=== PATIENT | female | born 1985 | race Caucasian/White ===

== ENCOUNTER 2017-08-19 08:37 | Emergency (ER) | payer MEDICAID ==
[~2017-08-19] VITALS: Ht 157.5 cm; Wt 80.5 kg
[~2017-08-19 08:37] MED LIST: FOLI-49; PREN1TAB49
[2017-08-19 08:39] VITALS: Ht 157.5 cm; Wt 80.5 kg
[2017-08-19] MEDS ORDERED: BENZ200C43 PO (09:27)
[2017-08-19] MEDS ORDERED: FLUT9.9S NASAL (09:27)
[2017-08-19] MEDS ORDERED: AZIT250T94 PO (09:27)
[2017-08-19] MEDS ORDERED: IBUP-1542 PO (09:27)
--- NOTE | 2017-08-19 10:03 | ERD ---
ER Documentation Chief Complaint Date/Time DATE: 08/19/17 TIME: 10:01 Chief Complaint cold symptoms x 1.5 months HPI This patient is a healthy 31-year-old female presenting to the emergency department with complaints of nasal congestion, frontal sinus pain, total body aches, nonproductive cough all ongoing intermittently for the past 1.5 months. Symptoms are now worsening. Symptoms not been improving. The patient has been using [id number] medication with no relief of symptoms. She denies fevers , chills, nausea, vomiting, diarrhea, or other symptoms currently. ROS All systems reviewed and are negative except as per history of present illness. Medications Home Meds Active Scripts Benzonatate* (Benzonatate*) 200 Mg Capsule, 200 MG PO TID Y for COUGH, #20 CAP Prov:RENAE CAT PA-C 08/19/17 Ibuprofen* (Motrin*) 600 Mg Tab, 600 MG PO Q6, #30 TAB Prov:RENAE CAT PA-C 08/19/17 Fluticasone Propionate (Flonase Allergy Relief) 9.9 Ml [place].susp, 1 SPRAY NASAL BID, #1 BOTTLE TO EACH NOSTRIL Prov:RENAE CAT PA-C 08/19/17 Azithromycin* (Zithromax*) 250 Mg Tablet, 250 MG PO .ZPACK DIRECTED, #6 TAB TAKE 500 MG (2 TABS) THE FIRST DAY THEN 250 MG (1 TAB) DAYS 2-5 Prov:RENAE CAT PA-C 08/19/17 Reported Medications Folic Acid* (Folic Acid*) 1 Mg Tablet 03/31/11 Vits W-Ca,Fe,Fa(<1MG) () 1 Tab Tablet 03/31/11 Allergies Allergies: Coded Allergies: Penicillins (Unverified Allergy, Mild, RASHES, 03/22/11) PMhx/Soc History of Surgery: No Anesthesia Reaction: No Hx Neurological Disorder: No Hx Respiratory Disorders: No Hx Cardiac Disorders: No Hx Psychiatric Problems: No Hx Miscellaneous Medical Probl: No Hx Alcohol Use: No Hx Substance Use: No Hx Tobacco Use: No Smoking Status: Never smoker Physical Exam Vitals Vital Signs Date Time Temp Pulse Resp B/P Pulse Ox O2 Delivery O2 Flow Rate FiO2 08/19/17 08:39 97.8 82 18 159/75 99 Physical Exam Const: Nontoxic, well-appearing female in no acute distress. Head: Atraumatic Eyes: Normal Conjunctiva ENT: Normal External Ears, Nose and Mouth. Tenderness to palpation of the frontal and maxillary sinuses bilaterally. Neck: Full range of motion..~ No meningismus. Resp: Mild inspiratory rhonchi to bilateral upper lung cesar. No wheezing, no crackles, no signs of respiratory distress. Cardio: Regular rate and rhythm, no murmurs Skin: No petechiae or rashes Back: No midline or flank tenderness Ext: No cyanosis, or edema Neur: Awake and alert Psych: Normal Mood and Affect Procedures/MDM 31-year-old female presents to the emergency department with complaints of nasal congestion, sinus pain, cough. Physical examination did show some tenderness to palpation of the frontal maxillary sinuses consistent with sinusitis. There is also rhonchi noted to bilateral upper lung cesar on lung examination consistent with a bronchitis. The patient was stable for outpatient management with a prescription for azithromycin, Flonase, ibuprofen, and benzonatate. Her vital signs were stable within the department and she did not require treatment here. She agreed with the discharge plan a diagnosis. Strict ear return precautions were discussed. Close follow-up with the primary care physician was advised. Low suspicion for life-threatening pathology at time of discharge. Departure Diagnosis: Primary Impression: Bronchitis Additional Impressions: Cough Sinusitis Sinusitis location: frontal Chronicity: acute Recurrence: non-recurrent Qualified Code: J01.10 - Acute non-recurrent frontal sinusitis Condition: Fair Patient Instructions: Bronchitis, Antiobiotic Treatment (Adult), Sinusitis, Abx Tx Referrals: [facility] () Usted se lawson hecho un examen mdico de control que le indica que no est en michaelle condicin que requiera tratamiento urgente en el Departamento de Emergencia. Un estudio ms profundo y el tratamiento de martinez condicin pueden esperar sin ningn riesgo hasta que usted sea atendida/o en el consultorio de martinez mdico o michaelle cl kavita. Es responsabilidad suya arreglar michaelle bing para el seguimiento del carlos eduardo. MANEJO DE CONDICIONES NO URGENTES EN EL FUTURO 1) Si usted tiene un mdico de atencin primaria: Usted debera llamar a martinez mdico de atencin primaria antes de venir al departamento de emergencia. Despus de las horas de consultorio, martinez doctor o martinez asociado/a est disponible por telfono. El mdico o enfermero de nilesh en el servicio telefnico puede asesorarle por sixto medio para atender el problema, o carlos eduardo contrario se puede programar michaelle bing. 2) Si usted no tiene un mdico de atencin primaria: Llame al mdico o clnica de referencia que aparece abajo anatoliy las horas de consultorio para hacer michaelle bing para que le vean. CLINICAS: [facility] [phone] [facility] [phone] [address] [facility] [phone] [facility] [phone] [facility]. [facility] [phone] [address] [facility] [phone] [address] Additional Instructions: No mas mejor en 2-3 rowley, regresar. Mas peor en 24 horas, regresear rapidamente. Ir a doctor primario in 5-7 rowley. Usar instrucciones cuando day medicamento. RENAE CAT PA-C Aug 19, 2017 10:03
== END 2017-08-19 10:43 | disposition home or self-care (01) ==
LOC: FTE 08:37
DX: J20.9 Acute bronchitis, unspecified (principal); J01.10 Acute frontal sinusitis, unspecified
CPT/HCPCS: 99284

== ENCOUNTER 2018-11-13 16:44 | Inpatient (IN) | END 2018-11-15 16:05 | disposition home or self-care (01) | DRG 282 ==

== ENCOUNTER 2019-05-31 12:32 | Emergency (ER) | payer SELFPAY ==
[~2019-05-31] VITALS: Ht 157.5 cm; Wt 77.7 kg
[~2019-05-31 12:32] MED LIST changes: +DILT120C77 PO; -FOLI-49; -PREN1TAB49
[2019-05-31 12:37] VITALS: Ht 157.5 cm; Wt 77.7 kg
[2019-05-31] MEDS ORDERED: AZIT250T PO (14:05)
[2019-05-31] MEDS ORDERED: PRED20TA PO (14:05)
[2019-05-31] MEDS ORDERED: ALBU8.5H8 INH (14:05)
[2019-05-31] MEDS ORDERED: D-ME473S2 PO (14:05)
[2019-05-31 14:12] VITALS: BP 146/76; PULSE 74; RESP 14
--- NOTE | 2019-05-31 19:56 | ERD ---
ER Documentation Chief Complaint Chief Complaint CP/SOB x4 days, referred by for possible abnormal EKG HPI 33-year-old Bruneian-speaking female presents to the ED for chest pain and cough. Patient states her cough has been productive, worse at nighttime and ongoing for the past 4 weeks. She states she started to develop shortness of breath and left-sided chest heaviness 4 days ago. She saw her PCP today who did an EKG that was apparently abnormal. Patient was subsequently referred here for further evaluation. Patient continues to complain of left-sided chest pain,worse when coughing or laying down. She denies any smoking. Denies any history of diabetes, hyperlipidemia hypertension. Denies any significant family history of heart disease. No nausea, diaphoresis. No numbness or tingling. No lower extremity swelling. No other symptoms. ROS All systems reviewed and are negative except as per history of present illness. Medications Home Meds Active Scripts Albuterol Sulfate* (Proair HFA*) 8.5 Gm Hfa.aer.ad, 2 PUFF INH Q4H PRN for WHEEZING AND SOB, #1 INHALER Prov:OLU RESTREPO PA-C 05/31/19 Dextromethorphan Hb-Promethazine Hcl* (Promethazine DM* Syrup) 473 Ml Syrup, 5 ML PO Q6 PRN for COUGH for 7 Days, ML Prov:OLU RESTREPO PA-C 05/31/19 Azithromycin* (Zithromax*) 250 Mg Tablet, 250 MG PO .ZPACK DIRECTED, #6 TAB TAKE 500 MG (2 TABS) THE FIRST DAY THEN 250 MG (1 TAB) DAYS 2-5 Prov:OLU RESTREPO PA-C 05/31/19 Diltiazem Hcl* (Cardizem CD*) 120 Mg Cap.sr.24h, 120 MG PO DAILY for 30 Days, #30 CAP Prov:JOSE WALDEN MD 11/15/18 Allergies Allergies: Coded Allergies: Penicillins (Verified Allergy, Severe, rashes, 11/13/18) PMhx/Soc Medical and Surgical Hx: pt denies Surgical Hx History of Surgery: No Anesthesia Reaction: No Hx Respiratory Disorders: No Hx Cardiac Disorders: No Hx Psychiatric Problems: No Hx Miscellaneous Medical Probl: No Hx Alcohol Use: No Hx Substance Use: No Hx Tobacco Use: No Smoking Status: Never smoker FmHx Family History: No diabetes, No coronary disease Physical Exam Vitals Vital Signs Date Temp Pulse Resp B/P (MAP) Pulse Ox O2 O2 Flow FiO2 Time Delivery Rate 05/31/19 98.6 74 14 146/76 98 Room Air 14:12 (99) 05/31/19 99.0 75 16 158/78 98 12:37 (104) Physical Exam Const: No acute distress Head: Atraumatic Eyes: Normal Conjunctiva ENT: Normal External Ears, Nose and Mouth. Neck: Full range of motion. No meningismus. Resp: Clear to auscultation bilaterally. No rhonchi, wheezes or rales. Cardio: Regular rate and rhythm, no murmurs Abd: Soft, non tender, non distended. Normal bowel sounds Skin: No petechiae or rashes Back: No midline or flank tenderness Ext: No cyanosis, or edema Neur: Awake and alert Psych: Normal Mood and Affect Result Diagram: 05/31/19 1313 05/31/19 1313 Results 24 hrs Laboratory Tests Test 05/31/19 13:13 White Blood Count 9.5 10^3/ul Red Blood Count 4.40 10^6/ul Hemoglobin 13.6 g/dl Hematocrit 38.5 % Mean Corpuscular Volume 87.5 fl Mean Corpuscular Hemoglobin 30.9 pg Mean Corpuscular Hemoglobin Concent 35.3 g/dl Red Cell Distribution Width 12.9 % Platelet Count 245 10^3/UL Mean Platelet Volume 10.0 fl Immature Granulocytes % 0.600 % Neutrophils % 65.2 % Lymphocytes % 25.0 % Monocytes % 6.3 % Eosinophils % 2.1 % Basophils % 0.8 % Nucleated Red Blood Cells % 0.0 /100WBC Immature Granulocytes # 0.060 10^3/ul Neutrophils # 6.2 10^3/ul Lymphocytes # 2.4 10^3/ul Monocytes # 0.6 10^3/ul Eosinophils # 0.2 10^3/ul Basophils # 0.1 10^3/ul Nucleated Red Blood Cells # 0.0 10^3/ul Sodium Level 141 mmol/L Potassium Level 4.0 mmol/L Chloride Level 105 mmol/L Carbon Dioxide Level 25 mmol/L Anion Gap 11 Blood Urea Nitrogen 9 mg/dl Creatinine 0.63 mg/dl Est Glomerular Filtrat Rate mL/min > 60 mL/min Glucose Level 210 mg/dl Calcium Level 9.6 mg/dl Troponin I < 0.012 ng/ml B-Type Natriuretic Peptide 38 PG/ML Procedures/MDM LABS & DIAGNOSTIC IMAGING: CBC: no e/o of systemic infection or severe anemia BMP: no e/o severe acidosis, alkalosis, renal failure, diabetic ketoacidosis Trop: neg BNP: normal PROCEDURE: XR Chest. CLINICAL INDICATION: Shortness of breath TECHNIQUE: Single portable view of the chest was obtained COMPARISON: No priors for comparison FINDINGS: The trachea is midline. The cardiac silhouette is mildly enlarged and pulmonary vascularity are within normal limits. The lungs are clear. The costophrenic angles are sharp. IMPRESSION: 1. Mild cardiomegaly. No evidence of acute cardiopulmonary disease. PROCEDURES: 12-lead EKG interpretation as interpeted by Dr. Hatfield Normal Sinus Rhythm with ventricular rate of 80 beats per minute Normal axis Normal intervals No acute ST or T wave changes suggestive of acute ischemia or STEMI. MEDICAL DECISION MAKIN-year-old female with no risk factors presents with chest pain and cough. She apparently had an abnormal EKG at her PCP's office. Repeat EKG here is completely unremarkable. Her work-up including troponin and BNP are negative. CXR revealed mild cardiomegaly however in the setting of a normal BNP, doubt CHF. I suspect her chest pain is more musculoskeletal and related to her cough and upper respiratory symptoms. Given duration of cough, will treat as bacterial bronchitis with antibiotics. I have low suspicion for pneumonia, ACS, SD, PE/DVT or any other emergent process. Patient was discharged home told to follow-up with your primary care provider sometime this week. Strict return precautions were discussed. PRESCRIPTIONS: Promethazine DM, Zithromax, pro-air HFA SPECIALIST FOLLOW UP RECOMMENDED: None Patient has been advised to follow up with primary care in 1-2 days. Departure Diagnosis: Primary Impression: Bronchitis Condition: Stable Patient Instructions: Bronchitis, Antiobiotic Treatment (Adult) Referrals: COMM[facility]ITY CLINICS YOU HAVE RECEIVED A MEDICAL SCREENING EXAM AND THE RESULTS INDICATE THAT YOU DO NOT HAVE A CONDITION THAT REQUIRES URGENT TREATMENT IN THE EMERGENCY DEPARTMENT. FURTHER EVALUATION AND TREATMENT OF YOUR CONDITION CAN WAIT UNTIL YOU ARE SEEN IN YOUR DOCTORS OFFICE WITHIN THE NEXT 1-2 DAYS. IT IS YOUR RESPONSIBILITY TO MAKE AN APPOINTMENT FOR FOLOW-UP CARE. IF YOU HAVE A PRIMARY DOCTOR --you should call your primary doctor and schedule an appointment IF YOU DO NOT HAVE A PRIMARY DOCTOR YOU CAN CALL OUR PHYSICIAN REFERRAL HOTLINE AT IF YOU CAN NOT AFFORD TO SEE A PHYSICIAN YOU CAN CHOSE FROM THE FOLLOWING [facility] [address] [facility] [address] [facility] [address] [facility] [address] [facility] [address] [facility]. [facility] [address] [facility]. [facility] YOU HAVE RECEIVED A MEDICAL SCREENING EXAM AND THE RESULTS INDICATE THAT YOU DO NOT HAVE A CONDITION THAT REQUIRES URGENT TREATMENT IN THE EMERGENCY DEPARTMENT. FURTHER EVALUATION AND TREATMENT OF YOUR CONDITION CAN WAIT UNTIL YOU ARE SEEN IN YOUR DOCTORS OFFICE WITHIN THE NEXT 1-2 DAYS. IT IS YOUR RESPONSIBILITY TO MAKE AN APPOINTMENT FOR FOLOW-UP CARE. IF YOU HAVE A PRIMARY DOCTOR --you should call your primary doctor and schedule and appointment IF YOU DO NOT HAVE A PRIMARY DOCTOR YOU CAN CALL OUR PHYSICIAN REFERRAL HOTLINE AT . IF YOU CAN NOT AFFORD TO SEE A PHYSICIAN YOU CAN CHOSE FROM THE FOLLOWING [facility] INSTITUTIONS: [facility] [address] [place] [address] [facility] [address] [place] [address] [facility] [address] [place] [address] Additional Instructions: Paciente aconseja volver a Departamento de urgencias inmediatamente para sntomas nuevos o que empeoran . Paciente aconseja posteriores con el PCP en 1-2 river. Si el paciente no tiene ninguna de atencin primaria pueden seguir con [facility] [address] [place] [address] o LAC + [address] [address] OLU RESTREPO PA-C May 31, 2019 19:56
== END 2019-05-31 14:20 | disposition home or self-care (01) ==
LOC: FTE 12:32
DX: J40 Bronchitis, not specified as acute or chronic (principal); R07.9 Chest pain, unspecified
CPT/HCPCS: 36415; 71045; 80048; 83880; 84484; 85025; 93005